=== PATIENT | female | born 1960 ===

== ENCOUNTER 2020-06-23 06:00 | Outpatient (RCR) | payer MEDICARE, MEDICAID, SELFPAY | END 2020-07-11 23:59 | disposition home or self-care (01) | LOC: MPT 06:00 | PROVIDERS: Family Provider Nurse Practitioner Family; PCP Nurse Practitioner Family; Referring Provider Nurse Practitioner; Visit Provider Nurse Practitioner | DX: R20.2 Paresthesia of skin (principal); I25.2 Old myocardial infarction | CPT/HCPCS: 97110; 97161 ==

== ENCOUNTER 2020-10-23 15:19 | Emergency (ER) | payer MEDICARE, MEDICAID, SELFPAY ==
[2020-10-23 15:41] VITALS: BP 138/73; PULSE 71; RESP 15; TEMP 36.7; O2SAT 96; BMI 41.1
[2020-10-23 16:44] VITALS: BP 141/76; PULSE 71; RESP 18; O2SAT 98
--- NOTE | 2020-10-23 17:05 | ECG_ITS ---
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 Measurements Intervals [place] Rate: 67 P: 41 TX: 186 QRS: 24 QRSD: 86 T: 30 QT: 448 QTc: 473 Interpretive Statements SINUS RHYTHM Compared to ECG 02/05/2018 20:13:41 First degree AV block no longer present Prolonged QT interval no longer present Electronically Signed On 10-24-2020 19:12:00 CDT by Reanna Billy M.D. [id number]
--- NOTE | 2020-10-23 17:05 | CTR_ITS ---
PROCEDURE INFORMATION: Exam: CT Head Without Contrast Exam date and time: 10/23/2020 5:05 PM Age: 60 years old Clinical indication: Weakness, facial; Additional info: Right facial numbness TECHNIQUE: Imaging protocol: Computed tomography of the head without contrast. Radiation optimization: All CT scans at this facility use at least one of these dose optimization techniques: automated exposure control; mA and/or kV adjustment per patient size (includes targeted exams where dose is matched to clinical indication); or iterative reconstruction. COMPARISON: CT head wo con* [id number] 12/09/2014 5:06 PM RADIATION DOSE METRICS: Total DLP (mGy-cm): 808.5 FINDINGS: Brain: Normal. No hemorrhage. Unremarkable white matter. No mass effect. Cerebral ventricles: No ventriculomegaly. Paranasal sinuses: Visualized sinuses are unremarkable. No fluid levels. Mastoid air cells: Visualized mastoid air cells are well aerated. Bones/joints: Unremarkable. No acute fracture. Soft tissues: Unremarkable. CT/CT head wo con* [id number] IMPRESSION: No acute intracranial abnormality. Radiation Dose CTDIVOL = (mGy): DLP = 808.5 (mGy-cm)
--- NOTE | 2020-10-23 17:06 | XRR_ITS ---
PROCEDURE INFORMATION: Exam: XR Chest Exam date and time: 10/23/2020 5:06 PM Age: 60 years old Clinical indication: Cough TECHNIQUE: Imaging protocol: XR of the chest. Views: 1 view. COMPARISON: CR Chest 1 [place] [id number] 02/05/2018 2:35 PM FINDINGS: Lungs: Mild atelectasis or scarring in the peripheral left lung base. The right lung is clear. Pleural spaces: Unremarkable. No pleural effusion. No pneumothorax. Heart/Mediastinum: Unremarkable. No cardiomegaly. Bones/joints: Unremarkable. XR/XR chest 1V portable [id number] IMPRESSION: No acute findings.
[2020-10-23 17:52] VITALS: BP 135/70; PULSE 70; RESP 18; O2SAT 98
[2020-10-23 18:07] LABS: Basophils # 0.1 10^3/uL (0.0-0.1); Basophils % 0.6 %; Eosinophils # 0.3 10^3/uL (0.0-0.8); Eosinophils % 2.6 %; Hematocrit 39.8 % (37.0-47.0); Hemoglobin 12.2 g/dL (11.5-15.3); Lymphocytes # 2.3 10^3/uL (0.8-4.8); Lymphocytes % 23.6 %; Mean Corpuscular HGB Conc 30.7 g/dL (30.0-36.0); Mean Corpuscular Hemoglobin 26.6 pg (28.0-34.0); Mean Corpuscular Volume 86.9 fl (81-99); Mean Platelet Volume 9.5 fL (7.4-10.4); Monocytes # 0.7 10^3/uL (0.2-0.9); Monocytes % 6.8 %; Neutrophils # 6.55 10^3/uL (1.8-7.7); Neutrophils % 66.2 %; Nucleated Red Blood Cells % 0 %; Platelet Count 328 10^3/cmm (130-400); Red Blood Count 4.58 10^6/uL (4.1-5.3); Red Cell Distribution Width 14.7 % (12.1-15.1); White Blood Count 9.9 10^3/uL (4.0-10.0)
--- NOTE | 2020-10-23 18:27 | W.ED.NEUROSD ---
HPI - Neuro Symptoms/Deficit General: Chief Complaint: Neuro Symptoms/Deficit Stated Complaint: RIGHT SIDE NUMBNESS/ COUGH Time Seen by Provider: 10/23/20 16:49 History of Present Illness: HPI Narrative: This patient is a 60 year old female presenting with right facial numbness and a cough - which she says are the same symptoms that were present with her prior stroke in the Spring of this year. She had those symptoms for about 2 days and then they went away. She was seen at [facility] for this 4 days after the symptoms started and was diagnosed with a stroke. She was put on cholesterol medicine and plavix and has been taking those since. Her current symptoms were present on awakening. She has no trouble with speech, swallowing, breathing, vision. No head ache. no ear pain. No chest pain, nausea or vomiting. Onset (ago): day(s) (1) Location: right face and other (cough) History of same: Yes Severity: mild Quality: burning Relieving factors: none Exacerbating factors: none Context: other (present on awakening) On Anticoagulants: Yes Associated symptoms: Reports no associated symptoms; Deny chest pain, headache(s), malaise, nausea or vomiting Review of Systems General: Reports: 10 or more systems reviewed and unremarkable except in HPI and below Const: Denies: fever(s), chills, fatigue or malaise Eyes: Denies: change in vision ENMT: Denies: odynophagia Card: Denies: chest pain or swelling of feet/ankles Resp: Denies: dyspnea or productive cough GI: Denies: abdominal pain, nausea or vomiting : Denies: flank pain or difficulty voiding Musc: Denies: neck pain or back pain Skin/Breast: Denies: rash Neuro: Denies: headache(s), numbness in extremities or weakness in extremities Vishal/Lymph: Denies: easy bruising or easy bleeding Physical Exam Const: COMMON NORMALS: no acute distress, patient oriented x3, no limitations and alert GENERAL APPEARANCE: cooperative and comfortable HENMT: HEAD & SCALP: normal to inspection FACE & SINUS: normal facial exam Eye: GENERAL EYE: appearance normal, both eyes and all related structures Neck/C-Spine: COMMON NORMALS: supple, no meningeal signs and no JVD Chest: COMMONS NORMALS: normal inspection of the chest Resp: COMMON NORMALS: normal respiratory effort, No use of accessory muscles and clear to auscultation bilaterally AUSCULTATION: clear to auscultation bilaterally Cardio: COMMON NORMALS: no JVD, regular rate, regular rhythm and No murmurs present (Cardio) RATE: regular rate RHYTHM: regular rhythm GI: COMMON NORMALS: Normal to inspection, nondistended, normoactive bowel sounds present, Soft to palpation and non-tender INSPECTION: Yes normal to inspection AUSCULTATION: Yes normoactive bowel sounds PALPATION: Yes Soft to palpation Back/Pelvis: COMMON NORMALS: thoracic and lumbar spine normal to inspection Extremity: COMMON NORMALS: normal to inspection Neuro: COMMON NORMALS: patient oriented x3, CN's II-XII intact bilaterally (right side of the tongue is slightly elevated compared to the left), moves all extremities, no focal motor deficits and no sensory deficits noted SENSORIUM/ORIENTATION: Yes alert MENINGEAL SIGNS: Yes no meningeal signs CRANIAL NERVES: Yes CN normal except as noted (decreased sensation on the right side of the face) and Yes other (uvula midline, soft palate elevates equally, tongue protrudes in the midlin) COORDINATION/BALANCE: [id number] test normal and Normal rapid alternating movements of the distal upper extremity present (Neuro) SPEECH: speech normal GAIT: Yes Normal gait present MOTOR EXAM: 5/5 motor strength present throughout and no tremor noted COORDINATION: [id number] test normal and rapid alternating movement UE normal Psych: COMMON NORMALS: mental status grossly normal, cooperative and normal affect Skin: COMMON NORMALS: no rashes or lesions noted and turgor normal GENERAL SKIN EXAM: no rashes or lesions noted and turgor normal Course Vital Signs: Vital signs: Vital Signs Temperature 98.1 F 10/23/20 15:41 Pulse Rate 70 10/23/20 17:52 Respiratory Rate 18 10/23/20 17:52 Blood Pressure 135/70 10/23/20 17:52 Pulse Oximetry 98 10/23/20 17:52 MDM - Neuro Symptoms/Deficit Lab Data: Labs: Lab Results 10/23/20 10/23/20 Range/Units 17:55 17:55 WBC 9.9 (4.0-10.0) 10^3/ uL RBC 4.58 (4.1-5.3) 10^6/u L Hgb 12.2 (11.5-15.3) g/dL Hct 39.8 (37.0-47.0) % MCV 86.9 (81-99) fl MCH 26.6 L (28.0-34.0) pg MCHC 30.7 (30.0-36.0) g/dL RDW 14.7 (12.1-15.1) % Plt Count 328 (130-400) 10^3/c mm MPV 9.5 (7.4-10.4) fL Neut % (Auto) 66.2 % Lymph % (Auto) 23.6 % [place] % (Auto) 6.8 % Eos % (Auto) 2.6 % Baso % (Auto) 0.6 % Neut # (Auto) 6.55 (1.8-7.7) 10^3/u L Lymph # (Auto) 2.3 (0.8-4.8) 10^3/u L [place] # (Auto) 0.7 (0.2-0.9) 10^3/u L Eos # (Auto) 0.3 (0.0-0.8) 10^3/u L Baso # (Auto) 0.1 (0.0-0.1) 10^3/u L Nucleated RBC % (a uto) 0 % Nucleated RBCs # 0.0 /100WBC Sodium Cancelled Potassium Cancelled Chloride Cancelled Carbon Dioxide Cancelled Anion Gap Cancelled BUN Cancelled Creatinine Cancelled GFR Calculation Cancelled Glucose Cancelled Calculated Osmolal ity Cancelled Calcium Cancelled Total Bilirubin Cancelled AST Cancelled ALT Cancelled Alkaline Phosphata se Cancelled Total Protein Cancelled Albumin Cancelled Globulin Cancelled Discharge Plan Discharge Prescriptions: No Action atorvastatin 40 mg tablet 40 mg PO DAILY RF: 0 meloxicam 15 mg tablet 15 mg PO DAILY RF: 0 amlodipine 2.5 mg tablet 2.5 mg PO DAILY RF: 0 clopidogrel 75 mg tablet 75 mg PO DAILY RF: 0 pantoprazole 40 mg tablet,delayed release (DR/EC) 40 mg PO DAILY RF: 0 sertraline 25 mg tablet 25 mg PO DAILY RF: 0 montelukast 10 mg tablet 10 mg PO DAILY RF: 0 furosemide 20 mg tablet 20 mg PO DAILY RF: 0 losartan 100 mg tablet 100 mg PO DAILY RF: 0 Spiriva with HandiHaler 18 mcg capsule, w/inhalation device 1 cap INHALATION DAILY RF: 0 Symbicort 160-4.5 mcg/actuation HFA aerosol inhaler 2 puff INHALATION BID RF: 0 Linzess 145 mcg capsule 145 mcg PO DAILY RF: 0 Combivent Respimat 20-100 mcg/actuation mist 1 puff INHALATION QID PRN (Reason: Shortness Of Breath) RF: 0 Coding Level of Care Code ED Inhalation Therapy Aide for Chg Fwd Exam Comprehensive
[2020-10-23 19:51] VITALS: BP 141/82; PULSE 73; RESP 19; O2SAT 98
[2020-10-23 20:11] LABS: Alanine Aminotransferase 16 U/L (0-33); Albumin Level 4.2 g/dL (3.5-5.2); Alkaline Phosphatase 92 IU/L (35-105); Anion Gap 12.8 (5-19); Aspartate Amino Transferase 11 U/L (0-32); Blood Urea Nitrogen 8 mg/dL (6-20); Calcium 8.8 mg/dL (8.5-10.5); Carbon Dioxide 28 mmol/L (22-29); Chloride 106 mmol/L (98-107); Globulin 2.7 g/dL (1.3-4.6); Glomerular Filtration Rate 102.7 mL/min (90-130); Glucose 90 mg/dL (65-115); Osmolality Calculated 294 mOsm/kg (285-295); Potassium 3.8 mmol/L (3.5-5.1); Sodium 143 mmol/L (136-145); Total Bilirubin 0.3 mg/dL (0.15-1.2); Total Protein 6.9 g/dL (6.6-8.7)
--- NOTE | 2020-10-23 22:30 | MRR_ITS ---
PROCEDURE INFORMATION: Exam: MR Head Without and With Contrast Exam date and time: 10/23/2020 10:30 PM Age: 60 years old Clinical indication: Weakness, facial; Additional info: Stroke, facial numbness, R tongue elevation, similar priro TECHNIQUE: Imaging protocol: MR of the head without and with intravenous contrast. COMPARISON: CT head wo con* [id number] 10/23/2020 5:32 PM FINDINGS: Brain: The sulci are within normal limits. Mild scattered foci of increased T2 FLAIR signal in supratentorial periventricular and subcortical white matter. Multiple small regions of increased T2 FLAIR signal in the central ruel. No diffusion restriction. No intracranial hemorrhage. No abnormal brain parenchymal or meningeal enhancement. Cerebral ventricles: Normal. No ventriculomegaly. Bones/joints: Unremarkable. Paranasal sinuses: Normal as visualized. No acute sinusitis. Mastoid air cells: Normal as visualized. No mastoid effusion. Orbital cavity: Unremarkable. Soft tissues: Unremarkable. MR/MR head wo/w con [id number] IMPRESSION: 1. No acute intracranial abnormality. 2. Mild chronic microangiopathy.
[2020-10-23] MEDS: gadobenate dimeglumine 20 mL vial IV (22:36)
[2020-10-23 23:44] VITALS: BP 148/90; PULSE 67; RESP 18; O2SAT 97
== END 2020-10-23 23:44 | disposition home or self-care (01) ==
PROVIDERS: Emergency Medicine; Emergency Provider Emergency Medicine; PCP Nurse Practitioner Family
DX: R20.0 Anesthesia of skin (principal); Z79.02 Long term (current) use of antithrombotics/antiplatelets
CPT/HCPCS: 70450; 70553; 71045; 80053; 85025; 93005; 99284; A9577

== ENCOUNTER 2023-02-05 20:00 | Outpatient (CLI) | payer MEDICARE, MEDICAID, SELFPAY | END 2023-02-05 20:01 | disposition home or self-care (01) | LOC: SLEEP 02-06 05:56 | PROVIDERS: PCP Nurse Practitioner Family; Visit Provider Nurse Practitioner | DX: G47.33 Obstructive sleep apnea (adult) (pediatric) (principal); R09.02 Hypoxemia | CPT/HCPCS: 95810 ==